=== PATIENT | male | born 1980 | race American Indian/Alaskan Native ===

== ENCOUNTER 2017-03-08 15:26 | Outpatient (CLI) | payer BC ==
--- NOTE | 2017-03-08 16:27 | XRay Report ---
Chest 2 views: History: Cough. Findings: Normal cardiomediastinal silhouette. Trachea is midline. No consolidation, pneumothorax or pleural effusion. Impression: No acute cardiopulmonary findings.
== END 2017-03-08 15:27 | disposition home or self-care (01) ==
LOC: SPVIMAG 15:26
DX: R05 Cough (principal)
CPT/HCPCS: 71020

== ENCOUNTER 2018-11-24 12:36 | Outpatient (CLI) | payer BC ==
--- NOTE | 2018-11-24 13:51 | XRay Report ---
RIGHT ANKLE: Ankle pain. The bones are well mineralized with normal bony contours and joint alignment. No fractures or destructive changes are noted and the adjacent soft tissues are normal. IMPRESSION: Normal study.
== END 2018-11-24 12:37 | disposition home or self-care (01) ==
LOC: SPVIMAG 12:36
DX: M25.571 Pain in right ankle and joints of right foot (principal)